=== PATIENT | male | born 1950 | race Caucasian/White ===

== ENCOUNTER 2021-09-27 14:31 | Emergency (ER) | payer MEDICARE, OTHER, MEDICAID ==
[2021-09-27] MEDS ORDERED: Sodium Chloride 0.9% 10 ML Syringe FLUSH PRN (19:11)
[2021-09-27] MEDS ORDERED: Acetaminophen Soln 650 MG/20.3 ML UD Cup PO ONE (19:13)
[2021-09-27] MEDS ORDERED: Sodium Chloride 0.9% 1,000 ML IV STA (19:14)
== END 2021-09-27 21:44 | disposition home or self-care (01) ==
LOC: JD.ED 14:31
DX: U07.1 COVID-19 (principal)
CPT/HCPCS: 36415; 71045; 80053; 83735; 85025; 99283; A9270; J7030

== ENCOUNTER 2021-10-07 11:36 | Emergency (ER) | payer MEDICARE, OTHER, MEDICAID ==
[2021-10-07] MEDS ORDERED: Sodium Chloride 0.9% 1,000 ML IV ONE (12:56)
[2021-10-07] MEDS: Sodium Chloride 0.9% 10 ML Syringe FLUSH PRN ×2 (13:21→14:36)
[2021-10-07] MEDS ORDERED: Potassium Chloride 20 MEQ Tab.ER PO ONE (13:58)
[2021-10-07] MEDS ORDERED: Ketorolac 30 MG/ML SDV IVPUSH ONE (14:15)
== END 2021-10-07 14:50 | disposition home or self-care (01) ==
LOC: JD.ED 11:36
DX: U07.1 COVID-19 (principal); E86.0 Dehydration
CPT/HCPCS: 36415; 71046; 80053; 85025; 86140; 96374; 99283; A9270; J1885; J7030; 99284